=== PATIENT | female | born 1960 | race Caucasian/White ===

== ENCOUNTER 2016-12-07 09:26 | Inpatient (IN) | payer BC, OTHER ==
[~2016-12-07] VITALS: Ht 152.4 cm; Wt 61.4 kg
[2016-12-07 09:33] VITALS: Ht 152.4 cm; Wt 61.4 kg
[2016-12-07] MEDS ORDERED: SOD CHLORIDE 0.9% 1,000 ML IV STA (10:45)
[2016-12-07 11:59] LABS: ABNORMAL IP MESSAGE 1; HEMATOCRIT 21.7 % (37.0-47.0); HEMOGLOBIN 7.3 g/dl (12.0-16.0); MEAN CORPUSCULAR HGB CONC 33.6 g/dl (32.0-37.0); MEAN CORPUSCULAR VOLUME 83.1 fl (82.0-101.0); NUCLEATED RED BLOOD CELLS% 0.2 /100WBC (0.0-0.0); RED BLOOD COUNT 2.61 10^6/ul (4.20-5.40); RED CELL DISTRIBUTION WIDTH 14.3 % (11.5-14.5); WHITE BLOOD COUNT 12.5 10^3/ul (4.8-10.8)
[2016-12-07 12:05] LABS: INR 0.94; PROTIME 12.6 Sec (12.2-14.2)
[2016-12-07 12:06] LABS: PARTIAL THROMBOPLASTIN TIME 30.7 Sec (25.0-35.0)
[2016-12-07 12:12] LABS: ALBUMIN/GLOBULIN RATIO 1.25; BILIRUBIN,INDIRECT 0.4 mg/dl (0-1.1); BILIRUBIN,TOTAL 0.4 mg/dl (0.2-1.3); CALCIUM 8.9 mg/dl (8.4-10.2); CREATININE 0.78 mg/dl (0.44-1.00); POTASSIUM 4.4 mmol/L (3.5-5.1); TOTAL PROTEIN 7.2 g/dl (6.1-8.1)
[2016-12-07 12:16] LABS: PLATELET COUNT 3 10^3/UL (140-415)
[2016-12-07] MEDS ORDERED: SOD CHLORIDE 0.9% 250 ML IV ONE (12:39)
[2016-12-07] MEDS ORDERED: IMMUNE GLOBULIN (HUMAN) 6 GM INJ IV STA (12:39)
[2016-12-07] MEDS ORDERED: METHYLPRED. NA SUCC 500 MG in DEXTROSE 5% 50 ML IVPB ONE ×2 (13:00→14:00)
[2016-12-07] MEDS ORDERED: SOD CHLORIDE 0.9% 1,000 ML IV SCH (13:11)
--- NOTE | 2016-12-07 13:28 | ERD ---
ER Documentation Chief Complaint Chief Complaint SENT BY PCP, WEAKNESS, PALE, HX OF ANEMIA HPI This is a 66-year-old female who presents to the emergency room for evaluation of generalized weakness. The patient was sent in by her primary care physician , Dr. Alatorre for evaluation of possible ITP. This patient states that she has had generalized weakness in his on her menstrual cycle currently. She states that she has had heavy vaginal bleeding and states that she is has used more than 2 pads in the past 24 hours. This patient states that she does have a history of myelodysplastic syndrome in her family, and came to the emergency room today for evaluation of her generalized weakness, and heavy menstrual bleeding. She denies any relieving or aggravating factors for her symptoms. ROS All systems reviewed and are negative except as per history of present illness. Allergies Allergies: Coded Allergies: No Known Allergy (Unverified , 12/07/16) PMhx/Soc Medical and Surgical Hx: pt denies Surgical Hx Hx Miscellaneous Medical Probl: Yes ("blood clotting disease") Hx Alcohol Use: No Hx Substance Use: No Hx Tobacco Use: No Smoking Status: Never smoker Physical Exam Vitals Vital Signs Date Time Temp Pulse Resp B/P Pulse Ox O2 Delivery O2 Flow Rate FiO2 12/07/16 13:27 84 18 125/84 98 Room Air 12/07/16 09:33 98.6 100 16 101/70 99 Physical Exam INITIAL VITAL SIGNS: Reviewed by me GENERAL: The patient is well developed and appropriate for usual state of health in no apparent distress HEENT: Mucous membranes, conjunctival pallor, pupils equal, round, and reactive to light. EOMI. There is no scleral icterus. NECK: C-spine is soft and supple, there is no meningismus. There is no cervical lymphadenopathy. LUNGS: Clear to auscultation bilaterally. There are no rales, wheezes or rhonchi. HEART: Regular rate and rhythm, no murmurs, clicks, rubs or gallops. ABDOMEN: Soft, non-tender, non-distended. There are bowel sounds in all four quadrants. No rebound or guarding. EXTREMITIES: There is no peripheral cyanosis or edema. No focal swelling or erythema. NEUROLOGICAL: The patient moves all four extremities with 5/5 strength. Cranial nerves II - XII are intact. Normal gait. Alert and oriented SKIN: Pale skin with petechiae noted over the torso and abdomen HEME/LYMPHATIC: Petechiae noted over the abdomen and torso PSYCHIATRIC: The patient does not appear anxious or depressed. Result Diagram: 12/07/16 1130 12/07/16 1130 Results 24 hrs Laboratory Tests Test 12/07/16 11:30 White Blood Count 12.510^3/ul Red Blood Count 2.6110^6/ul Hemoglobin 7.3g/dl Hematocrit 21.7% Mean Corpuscular Volume 83.1fl Mean Corpuscular Hemoglobin 28.0pg Mean Corpuscular Hemoglobin Concent 33.6g/dl Red Cell Distribution Width 14.3% Platelet Count 310^3/UL Mean Platelet Volume fl Neutrophils % % Lymphocytes % % Monocytes % % Eosinophils % % Basophils % % Nucleated Red Blood Cells % 0.2/100WBC Neutrophils # 10^3/ul Lymphocytes # 10^3/ul Monocytes # 10^3/ul Eosinophils # 10^3/ul Basophils # 10^3/ul Nucleated Red Blood Cells # 10^3/ul Pathologist Review (Hematology) YES Prothrombin Time 12.6Sec Prothrombin Time Ratio 1.0 INR International Normalized Ratio 0.94 Activated Partial Thromboplast Time 30.7Sec Sodium Level 136mmol/L Potassium Level 4.4mmol/L Chloride Level 97mmol/L Carbon Dioxide Level 32mmol/L Anion Gap 11 Blood Urea Nitrogen 18mg/dl Creatinine 0.78mg/dl Glucose Level 122mg/dl Calcium Level 8.9mg/dl Total Bilirubin 0.4mg/dl Direct Bilirubin 0.00mg/dl Indirect Bilirubin 0.4mg/dl Aspartate Amino Transf (AST/SGOT) 37IU/L Alanine Aminotransferase (ALT/SGPT) 76IU/L Alkaline Phosphatase 216IU/L Total Protein 7.2g/dl Albumin 4.0g/dl Globulin 3.20g/dl Albumin/Globulin Ratio 1.25 Lipase 25U/L Current Medications Medications (Trade) Dose Ordered Sig/Shelbi Route PRN Reason Start Time Stop Time Status Last Admin Dose Admin Sodium Chloride 1,000 ml @ 1,000 mls/hr Q1H STAT IV 12/07/16 10:45 12/07/16 11:44 DC 12/07/16 11:44 Methylprednisolone Sodium Succinate 500 mg/Dextrose 50 ml @ 100 mls/hr ONCE ONCE IVPB 12/07/16 13:00 12/07/16 13:00 DC Sodium Chloride (NS) 250 ml @ 0 mls/hr Q0M ONCE IV 12/07/16 12:39 12/07/16 12:44 DC Immune Globulin 24 gm 24 gm ONCE STAT IV 12/07/16 12:39 12/07/16 12:40 Cancel Immune Globulin 24 gm/Sterile Water 500 ml @ 0 mls/hr ONCE IV 12/07/16 14:00 12/07/16 23:59 Sodium Chloride (NS) 1,000 ml @ 80 mls/hr [id number] IV 12/07/16 13:11 12/08/16 01:40 Ondansetron HCl (Zofran Inj) 4 mg ER BRIDGE PRN IV NAUSEA AND/OR VOMITING 12/07/16 13:30 12/08/16 13:29 Acetaminophen (Tylenol Tab) 650 mg ER BRIDGE PRN PO MILD PAIN/FEVER 12/07/16 13:30 12/08/16 13:29 Procedures/MDM Ultrasound abdomen: No free fluid This is a 56-year-old female who presents to the emergency room after being sent in by her primary care physician, Dr. alatorre for evaluation of generalized weakness, possible anemia and ITP. This patient does have a history of mild dysplastic syndrome which runs in her family and the patient states that her mother did of complications secondary to myelodysplastic syndrome. She has not had a workup for a mild dysplasia in the past. When I evaluated her I noted a female that was in no acute distress however she did have pale skin, petechiae, and conjunctival pallor. Lab work was obtained and lab work does show a normocytic anemia likely secondary to acute blood loss from heavy menstrual bleeding. The patient also has a platelet count of 3000. Given that this patient has petechiae, could be suffering from ITP and has active bleeding with a platelet count less than 10,000 the patient was transfused 1 unit of platelets in the emergency room, she was given 1 unit of packed red blood cells as well. I did start this patient on IVIG, and has spoken to Dr. Alatorre who referred me to shear setter/oncologist Dr. Langley. I have reviewed the case with him and he is okay with her plan of care for high-dose Solu-Medrol, 500 mg. He is okay with IVIG and platelet and blood transfusions here in the emergency room. I spoken to this patient in regards to her diagnosis and the patient is okay with her plan of care. She will be admitted under the care of Dr. Alatorre for will be placed to telemetry floor at this time. Critical Care: Excluding all billable procedures Time: 47 minutes Treatments/Evaluations: Close monitoring and treatment of unstable vital signs, cardiorespiratory, and neurologic status, while maintaining tight balance of fluid, respiratory, and cardiac interventions, multiple consultations , lab value interpretation, blood transfusion, platelet transfusion, coordination of nursing care. Departure Diagnosis: Primary Impression: Thrombocytopenia Additional Impressions: Blood loss anemia Acute ITP Menorrhagia Condition: Fair MITZI GARCIA DO Dec 07, 2016 13:28
[2016-12-07] MEDS ORDERED: ACETAMINOPHEN 325 MG TAB PO PRN (13:30)
[2016-12-07] MEDS ORDERED: ONDANSETRON 4 MG INJ IV PRN (13:30)
--- NOTE | 2016-12-07 13:54 | HP ---
DATE OF ADMISSION: 12/07/2016 IDENTIFYING DATA: The patient is a 56-year-old female admitted with chief complaint of weakness and bruising of approximately 6 weeks' duration. HISTORICAL EVENTS: Importantly, the patient did have evidence of an upper respiratory tract infecti on in late September of this year and was given a Z-Tee. She was seen today with the chief complaint o f being quite tired for approximately 6 to 8 weeks, noting some soreness involving the left upper qu adrant and lateral ribs when bending and twisting, not so taking a deep breath. There has been no r ecurrence of cough, wheezing, shortness of breath, or substernal chest pain. For the last week or s o, she has noted some "red dots" on her skin seems to be bruising more so her extremities, less so h er torso, even prior to taking nonsteroidals and Suman's pills. Her appetite has been reduced. Ther e has been some nausea, no vomiting. There has been no gross gastrointestinal bleeding. She did st art her period yesterday and has noted significant bleeding, more so than usual. She denied any pat hologic symptoms. She has had some low back pain several days ago. She has had no trauma, fever , chills or weight loss. MEDICATIONS: Synthroid 100 mcg per day. PAST MEDICAL HISTORY: Includes: 1. History of digits gestational diabetes with first . 2. History of genital and lip herpes. 3. History of benign positional vertigo. This occurred in 2009 with MRI imaging of the brain and I AC being negative. 4. Thyroid nodules that were evaluated by endocrine in 2011, was reevaluated in spring 2016, no int ervention was needed. 5. Evaluated rheumatologically by Dr. Foster in 02/2012. It was felt no rheumatologic disease was present. ALLERGIES: NONE. FAMILY HISTORY: Positive for skin cancer and mom had a "blood disorder". SOCIAL HISTORY: She is from [place], , has 2 boys. 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 One son has ce rebral palsy. PHYSICAL EXAMINATION: GENERAL: Pale female in no acute distress. VITAL SIGNS: BP 115/78 sitting, 104/76 standing, respirations were 18. She was afebrile. EYES: Extraocular muscles were full. Conjunctivae were pale. Nose, mouth and throat were normal. NECK: Supple without jugular venous distention, thyroid enlargement or adenopathy. LUNGS: Clear. HEART: Rhythm regular, I/ systolic murmur. No third or fourth sound. ABDOMEN: Obese. Liver was not enlarged. There was slight tenderness in the left upper quadrant an d left lateral ribs on gentle palpation. There was a fullness in the left upper quadrant. Spleen t ip could not be palpable. EXTREMITIES: No edema. SKIN: Revealed petechiae and ecchymoses involving the extremities, more so than torso. IMPRESSION: 1. Suspect she has anemia, which may be related to bleeding, gastrointestinal? Differential diagno sis includes a possible hemolytic anemia or ITP. 2. Left upper quadrant and left lateral rib pain. This may be related to splenomegaly, doubt splen ic rupture. PLAN: Emergency room evaluation. We will need CT of the chest and abdomen. Hematology to see. Jenn it labs. Dictated By: ALFREDO BRAMBILA/DONALD Conf#: [id number] DID#: [id number]
[2016-12-07] MEDS ORDERED: LIOT25TA3 PO (13:56)
[2016-12-07] MEDS ORDERED: LEVO25TA53 PO (13:56)
[2016-12-07] MEDS ORDERED: WATER STERILE FOR IV SCH (14:00)
[2016-12-07] MEDS ORDERED: IMMUNE GLOBULIN IV SCH (14:00)
--- NOTE | 2016-12-07 15:25 | RADRPT ---
PROCEDURE: US Abdomen - limited study.. CLINICAL INDICATION: Palpable spleen. TECHNIQUE: Multiple real-time longitudinal and transverse images of the upper portion of the abdom en were acquired utilizing a curved array transducer. Images were reviewed on a high-resolution PACS workstation. COMPARISON: None FINDINGS: The liver is normal in size and normal in echogenicity. There is no focal hepatic lesion. The spleen is normal in size and there is no focal splenic lesion. The spleen measures 10.5 x 5.7 x 5.3 cm. The pancreas is not visualized due to overlying bowel gas. No free fluid is present. The kidneys are grossly normal. IMPRESSION: 1. Normal spleen with no splenomegaly. 2. Otherwise unremarkable limited upper abdomen ultrasound. RPTAT: QQ .Siva Marino MD, Date Time Electronically viewed and signed by .Siva Marino MD, on 12/07/2016 15:25 .R/
--- NOTE | 2016-12-07 15:44 | RADRPT ---
PROCEDURE: CT Abdomen and Pelvis without contrast. CLINICAL INDICATION: Abdominal and pelvic pain. TECHNIQUE: CT scan of the abdomen and pelvis without contrast was performed. Coronal and sagittal reformatted images were obtained from the axial source images. Images were reviewed on a high-resolu [place] PACS workstation. Total exam DLP is 503.15 mGy-cm. CTDIvol is 8.58 mGy. One or more of the fo [facility] dose reduction techniques were used: Automated exposure control, adjustment of the mA and/or kV according to patient size, use of iterative reconstruction technique. COMPARISON: None. FINDINGS: The lung bases are normal. There is no pleural effusion. The liver is normal in size and attenuation. There is no focal hepatic lesion. The gallbladder and bile ducts are normal. The spleen is normal in size. There is no focal splenic lesion. Both adrenals are normal with no enlargement or mass. The pancreas is unremarkable with no mass or evidence of pancreatitis. There is no renal mass or hydronephrosis. There is no renal calculus or ureteral calculus. The abdominal aorta is not dilated. There is no retroperitoneal lymphadenopathy or mass. There is no pelvic lymphadenopathy or mass. The bladder and distal ureters are normal. The periappendiceal region is unremarkable with no evidence of appendicitis. The appendix is well se en and appears normal. The bowel and mesentery are normal. There is no free fluid or free gas. The osseous structures are unremarkable with no fracture or lytic lesion. IMPRESSION: 1. Unremarkable CT scan of the abdomen and pelvis. RPTAT: QQ .Siva Marino MD, Date Time Electronically viewed and signed by .Siva Marino MD, MD on 12/07/2016 15:44 .R/
[2016-12-07 18:40] VITALS: TEMP 98.5
[2016-12-07 20:00] VITALS: BP 123/72; PULSE 87; RESP 20
[2016-12-07 20:42] LABS: IRON 131 ug/dl (35-150)
[2016-12-07 20:52] LABS: TOTAL IRON BINDING CAPACITY 295 ug/dl (241-421)
[2016-12-07 20:59] LABS: URIC ACID 3.4 mg/dl (3.1-7.9)
[2016-12-07 22:02] LABS: FOLATE > 20.0 ng/ml (2.8-20.0)
[2016-12-08] VITALS (12 sets, daily range): BP systolic 100–123; BP diastolic 55–71; PULSE 55–84; RESP 18–20
[2016-12-08 06:32] LABS: ABNORMAL IP MESSAGE 1; HEMATOCRIT 22.4 % (37.0-47.0); HEMOGLOBIN 7.7 g/dl (12.0-16.0); MEAN CORPUSCULAR HEMOGLOBIN 28.4 pg (29.0-33.0); MEAN CORPUSCULAR HGB CONC 34.4 g/dl (32.0-37.0); MEAN CORPUSCULAR VOLUME 82.7 fl (82.0-101.0); MEAN PLATELET VOLUME 10.8 fl (7.4-10.4); NUCLEATED RED BLOOD CELLS% 0.3 /100WBC (0.0-0.0); PLATELET COUNT 39 10^3/UL (140-415); RED BLOOD COUNT 2.71 10^6/ul (4.20-5.40); RED CELL DISTRIBUTION WIDTH 13.9 % (11.5-14.5); WHITE BLOOD COUNT 11.2 10^3/ul (4.8-10.8)
[2016-12-08 06:45] LABS: POSITIVE DIFF @See below
[2016-12-08] MEDS ORDERED: LEVOTHYROXINE 25 MCG TAB PO SCH (07:00)
[2016-12-08 07:09] LABS: MAGNESIUM 1.9 mg/dl (1.7-2.5); PHOSPHORUS 3.8 mg/dl (2.5-4.9)
[2016-12-08 07:13] LABS: ALBUMIN/GLOBULIN RATIO 0.78; BILIRUBIN,INDIRECT 0.2 mg/dl (0-1.1); BILIRUBIN,TOTAL 0.2 mg/dl (0.2-1.3); CALCIUM 8.8 mg/dl (8.4-10.2); CREATININE 0.68 mg/dl (0.44-1.00); POTASSIUM 4.9 mmol/L (3.5-5.1); TOTAL PROTEIN 6.8 g/dl (6.1-8.1)
[2016-12-08 07:43] LABS: THYROID STIMULATING HORMONE 1.26 MIU/L (0.465-4.680)
--- NOTE | 2016-12-08 08:03 | PN ---
Date/Time of Note Date/Time of Note DATE: 12/08/16 TIME: 07:59 Assessment/Plan VTE Prophylaxis VTE Prophylaxis Intervention: contraindicated Lines/Catheters IV Catheter Type (from Nrsg): Peripheral IV Assessment/Plan Assessment/Plan 1. Thrombocytopenia likely ITP, will rev with heme, ? transfuse although she is not symptomatic, ? cont steroids, bone marrow to be done today. 2. Left upper quad pain has resolved, no enlarged spleen noted on CT. 3. Hypothryoidism, will confirm exact thyroid replacement. 4. Anemia, not iron defecient, vag bleeding has abated, stool ob is pending. 5. Mild abnl liver tests, ? cause, will follow and obtain hepatitis panel. Subjective 24 Hr Interval Summary Respiratory: No cough, No shortness of breath Cardiovascular: No chest pain Gastrointestinal: No nausea, No pain, No vomiting Genitourinary: no complaints Musculoskeletal: No back pain Exam/Review of Systems Vital Signs Vitals Vital Signs Date Time Temp Pulse Resp B/P Pulse Ox O2 Delivery O2 Flow Rate FiO2 12/08/16 07:48 98.3 73 20 109/71 98 12/07/16 18:40 Room Air Intake and Output 12/07/16 12/07/16 12/08/16 15:00 23:00 07:00 Intake Total 350 ml 2040 ml Balance 350 ml 2040 ml Exam Neck: No jvd Respiratory: clear to auscultation Cardiovascular: regular rate and rhythm Gastrointestinal: nl liver, spleen, soft, No distended, No mass Extremities: No edema, No tenderness Results Result Diagram: 12/08/16 0532 12/08/16 0532 Results 24 hrs Laboratory Tests Test 12/07/16 11:30 12/07/16 20:03 12/07/16 20:09 12/08/16 05:32 White Blood Count 12.5 H 11.2 H Red Blood Count 2.61 L 2.71 L Hemoglobin 7.3 L 7.7 L Hematocrit 21.7 L 22.4 L Mean Corpuscular Volume 83.1 82.7 Mean Corpuscular Hemoglobin 28.0 L 28.4 L Mean Corpuscular Hemoglobin Concent 33.6 34.4 Red Cell Distribution Width 14.3 13.9 Platelet Count 3 *L 39 #L Mean Platelet Volume 10.8 H Neutrophils % Lymphocytes % Monocytes % Eosinophils % Basophils % Nucleated Red Blood Cells % 0.2 H 0.3 H Neutrophils # Lymphocytes # Monocytes # Eosinophils # Basophils # Nucleated Red Blood Cells # Pathologist Review (Hematology) YES Prothrombin Time 12.6 Prothrombin Time Ratio 1.0 INR International Normalized Ratio 0.94 Activated Partial Thromboplast Time 30.7 Sodium Level 136 138 Potassium Level 4.4 4.9 Chloride Level 97 104 Carbon Dioxide Level 32 H 30 Anion Gap 11 9 Blood Urea Nitrogen 18 14 Creatinine 0.78 0.68 Glucose Level 122 206 Calcium Level 8.9 8.8 Total Bilirubin 0.4 0.2 Direct Bilirubin 0.00 0.00 Indirect Bilirubin 0.4 0.2 Aspartate Amino Transf (AST/SGOT) 37 39 Alanine Aminotransferase (ALT/SGPT) 76 H 74 H Alkaline Phosphatase 216 H 168 H Total Protein 7.2 6.8 Albumin 4.0 3.0 #L Globulin 3.20 3.80 H Albumin/Globulin Ratio 1.25 0.78 Lipase 25 Iron Level 131 Total Iron Binding Capacity 295 Percent Iron Saturation 44 Ferritin 213.0 Vitamin B12 Level > 1000 H Folate > 20.0 H Fibrinogen 424.0 Uric Acid 3.4 Lactate Dehydrogenase 1335 H Immunoglobulin A 140 Immunoglobulin G 891 Immunoglobulin M 36 L Phosphorus Level 3.8 Magnesium Level 1.9 Thyroid Stimulating Hormone (TSH) 1.260 Test 12/08/16 06:30 Lab Scanned Report BLOOD TRANSFUSION ALFREDO BUSCH MD Dec 08, 2016 08:03
--- NOTE | 2016-12-08 08:36 | CONS ---
DATE OF ADMISSION: 12/07/2016 DATE OF CONSULTATION: 12/07/2016 HEMATOLOGY CONSULTATION REQUESTING PHYSICIAN: Dr. Ja Morejon. REASON FOR CONSULTATION: Thrombocytopenia. Dear Dr. Morejon: Thank you very much for asking me to see this very interesting and pleasant patient in hematologic consultation. As you know, Ms. Evangelista is a 56-year -old premenopausal female who is admitted to [facility] with complaints of increasing weakness and fatigue as well as increasing bruising. The patient apparently was seen for a routine physical examination on 2016. At that time, the patient was experiencing some mild fatigue and also recently was experiencing some upper respiratory tract symptoms. At that time, however, the patient did have a CBC performed. The white count was 8000 with 63 % neutrophils and 23% lymphocytes. Hemoglobin was 12.2, hematocrit was 12.2, MCV 85.3, MCH 28.4, MCHC 33.3, and platelet count was 303,000. Also at that time, a comprehensive metabolic panel was drawn. This was basically within normal limits. At that time, the patient had a calcium of 9.2 and albumin was 4.2, glucose 92, BUN 14, creatinine 0.81. Alkaline phosphatase 71, ALT 10, AST 17, bilirubin 0.5. PAST MEDICAL HISTORY: The patient, as mentioned, is admitted now after presenting to Dr. Morejon's office with complaints of increasing fatigue. She has also noticed increased bruisability in the past 1 to 2 weeks. The patient did have the onset of her usual menses over the weekend, which did result in heavy flow with increasing symptoms of fatigue and feeling "lightheaded." The patient has had some epistaxis, but has not had any gingival bleeding. She has not noticed any melena or hematochezia. The patient has complained of some lower back and some left upper quadrant discomfort, but has not had any significant bone pain. She has not had fevers, chills or night sweats. She has not complained of headache, dizziness or diplopia. The patient on admission to the hospital has a white count of 12,500, the red blood cell count is 2.61 million, hemoglobin 7.3, hematocrit 21.7, MCV 83, MCH 28.0, MCHC 33.6, and platelet count is 3000. Pro time was 12.6 seconds with an INR of 0.94, PTT is 30.7 seconds. A comprehensive metabolic panel was normal, except for an ALT of 76 and alkaline phosphatase of 216. Total bilirubin was 0.4, AST 37. A chest x-ray has not been performed, but a CT scan of the abdomen and pelvis was normal. There was no mesenteric or retroperitoneal lymphadenopathy. The liver, gallbladder, pancreas, kidneys, adrenal gland and spleen were normal. The bony structures visualized did not show any evidence of destructive lesions or fractures. Abdominal ultrasound was also done and the spleen was measured at 10.5 x 5.7 x 5.3 cm. This is not enlarged. The patient's past history is remarkable in that she has had minimal medical problems. She has had a history of hypothyroidism. Has been seen in the past by a pier master assistant, but apparently no rheumatologic abnormality was found. The patient has no history of hypertension, heart disease, diabetes, renal, hepatic or pulmonary disease. MEDICATIONS: Prior to admission included levothyroxine 100 mcg daily. The patient had recently had an upper respiratory tract infection and was treated with azithromycin over a 4 day period. She cannot tell me exactly when this was discontinued. The patient is premenopausal. Last menstrual period was within the last week. She is 4, para 2, AB 2. SOCIAL HISTORY: The patient is . 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 She has no known exposures to industrial toxins or ionizing radiation. She does not smoke cigarettes but does have approximately 1 glass of wine per day. FAMILY HISTORY: The patient's family history is remarkable in that her mother apparently had a myelodysplastic syndrome. She in her 70s. There is also apparently a cousin who has had acute leukemia. She also has 1 child who has cerebral palsy. PHYSICAL EXAMINATION GENERAL: Reveals a well-developed, mildly obese female who is in no acute distress. VITAL SIGNS: Temperature 98.5 orally, pulse 92 per minute and regular, respirations 16, blood pressure 114/73, pulse oximetry 98% on room air. SKIN: There are scattered ecchymoses and petechiae. Skin is pale. Good skin turgor. HEENT: Normocephalic. No evidence of trauma. The pupils are equal, round, reactive to light and accommodation. Sclerae are nonicteric. Oral mucosa and conjunctivae are pale. There are no subconjunctival hemorrhages. No retinal hemorrhages, no oral mucosal purpura. NECK: Supple, no jugular venous distention or thyroid enlargement. No carotid bruits. CHEST: Clear to auscultation and percussion. No rhonchi, wheezes, rales or rubs. HEART: Regular sinus rhythm. No S3, S4 or murmurs. NODES: No palpable lymphadenopathy in any lymph node bearing area. ABDOMEN: Soft, mild obesity. There are no palpable masses, no organomegaly. There is mild tenderness on palpation of the left upper quadrant. No rebound tenderness. Bowel sounds are active. There is no ascites. EXTREMITIES: Good range of motion. No clubbing, no edema or cyanosis. No palpable cords or Homans sign. There are multiple ecchymoses on the lower extremities. NEUROLOGIC: Reveals no focal neurologic abnormalities. The peripheral smear has been reviewed. There is increased rouleaux formation. There is mild a population of hypochromic and microcytic red blood cells. No red blood cell fragmentation noted. White blood cells are minimally increased in number. There is, however, a left shift with some circulating myelocytes and what appear to be blasts. There are also nucleated red blood cells seen. The lymphocytes appear normal. Platelets are markedly decreased and mostly small forms. This patient does have severe thrombocytopenia and anemia, which has evolved in the past 2 months. The patient has not had any recent exposures to toxins or infections, although apparently did have an upper respiratory tract infection recently and did take azithromycin. Although there is a consideration of immune thrombocytopenia, the presence of the nucleated red blood cells and immature granulocytes including blasts suggest the possibility of an evolving acute leukemia. I have discussed the situation with the patient. She has already received 1 unit of packed red blood cells and 1 unit of platelets. She has also been given Solu-Medrol 500 mg as a treatment for potential immune thrombocytopenia. Also is scheduled to receive IVIG as a treatment for immune thrombocytopenia. As mentioned, I do feel that this patient has a possible evolving acute leukemia. I have therefore requested that a posterior iliac crest bone marrow aspiration and biopsy be performed in radiology tomorrow. Other studies at this time include an LDH as well as a uric acid. We will obtain a serum protein electrophoresis, immunofixation, and quantitative immunoglobulins. Also obtain DOYLE as well as antiplatelet antibodies. Iron studies have been ordered. We will also obtain a JAK2 mutation analysis and BCR-ABL gene rearrangement studies for the possibility that the patient may have a [place] chromosome positive acute lymphoblastic leukemia, although I feel this is unlikely. Once again, thank you very much for the opportunity of participating in the medical care of this very interesting and pleasant patient. I will be happy to follow this patient with you and assist in her hematologic evaluation and follow up as necessary. Dictated By: LICO LARSEN MD SR/DONALD Conf#: [id number] DID#: [id number]
[2016-12-08] MEDS: LIOTHYRONINE 25 MCG TAB PO SCH (09:00)
[2016-12-08 09:24] LABS: ADD UMIC YES; UR ASCORBIC ACID 20 mg/dL (NEGATIVE); UR BILIRUBIN (Dip) NEGATIVE (NEGATIVE); UR BLOOD (Dip) 2+ mg/dL (NEGATIVE); UR CLARITY CLEAR (CLEAR); UR COLOR STRAW (YELLOW); UR GLUCOSE (Dip) 3+ mg/dL (NEGATIVE); UR KETONES (Dip) NEGATIVE (NEGATIVE); UR LEUKOCYTE ESTERASE (Dip) NEGATIVE Leu/ul (NEGATIVE); UR NITRITE (Dip) NEGATIVE (NEGATIVE); UR RBC 26 /HPF (0-5); UR SPECIFIC GRAVITY (Dip) 1.013 (1.003-1.030); UR SQUAMOUS EPITHELIAL CELL FEW /HPF (FEW); UR TOTAL PROTEIN (Dip) NEGATIVE (NEGATIVE); UR UROBILINOGEN (Dip) NEGATIVE (NEGATIVE)
[2016-12-08 09:28] LABS: BLASTOCYTES #M 1.1 10^3/ul (0.0-0.0)
[2016-12-08 09:37] LABS: PATH REVIEW WS; POSITIVE DIFF @See below
[2016-12-08 09:44] LABS: PATH REVIEW? YES
[2016-12-08 10:14] LABS: ANISOCYTOSIS 2+ (0-0); EOSINOPHILS % (M) 2 % (0-7); MICROCYTOSIS 2+ (0-0); MONOCYTES % (M) 3 % (0-11); PLATELET ESTIMATE DECREASED; POIKILOCYTOSIS 1+ (0-0); POLYCHROMASIA 3+ (0-0); REACTIVE LYMPHOCYTES% (M) 6 % (0-0)
--- NOTE | 2016-12-08 11:04 | PN ---
Date/Time of Note Date/Time of Note DATE: 12/08/16 TIME: 10:57 Assessment/Plan VTE Prophylaxis VTE Prophylaxis Intervention: other (thrombocytopenia) Lines/Catheters IV [facility] Peripheral IV Assessment/Plan Assessment/Plan 56 yo woman originally thought to have ITP but blasts seen on the peripheral smear, which raises the possibility of leukemia. WBC is minimally elevated but plt were 3 (now 39 after IVIG, steroids and transfusion) and Hgb is up to 7.7 after transfusion. I will order one more unit of RBC. Bone marrow biopsy is to be done later today but the exact time is not known. A preliminary marrow result may be available late tomorrow morning. Subjective 24 Hr Interval Summary Free Text/Dictation Pt feels much better after transfusions. She is very anxious to go home. Exam/Review of Systems Vital Signs Vitals Vital Signs Date Time Temp Pulse Resp B/P Pulse Ox O2 Delivery O2 Flow Rate FiO2 12/08/16 08:12 73 12/08/16 07:48 98.3 20 109/71 98 12/07/16 18:40 Room Air Intake and Output 12/07/16 12/07/16 12/08/16 15:00 23:00 07:00 Intake Total 350 ml 2040 ml Balance 350 ml 2040 ml Exam Constitutional: alert, oriented Head: normocephalic Eyes: other (pallor) Neck: supple Respiratory: clear to auscultation Cardiovascular: regular rate and rhythm Gastrointestinal: nl liver, spleen, soft Skin: ecchymosis Lymph: nl lymph nodes Results Result Diagram: 12/08/16 0532 12/08/16 0532 Results 24 hrs Laboratory Tests Test 12/07/16 11:30 12/07/16 20:03 12/07/16 20:09 12/08/16 01:00 White Blood Count 12.5 H Red Blood Count 2.61 L Hemoglobin 7.3 L Hematocrit 21.7 L Mean Corpuscular Volume 83.1 Mean Corpuscular Hemoglobin 28.0 L Mean Corpuscular Hemoglobin Concent 33.6 Red Cell Distribution Width 14.3 Platelet Count 3 *L Mean Platelet Volume Neutrophils % Lymphocytes % Monocytes % Eosinophils % Basophils % Nucleated Red Blood Cells % 0.2 H Neutrophils # Neutrophils # (Manual) Absolute Lymphocytes (Manual) Lymphocytes # Monocytes # Absolute Monocytes (Manual) Eosinophils # Absolute Eosinophils (Manual) Basophils # Blastocytes # 1.1 H Nucleated Red Blood Cells # Pathologist Review (Hematology) WS Prothrombin Time 12.6 Prothrombin Time Ratio 1.0 INR International Normalized Ratio 0.94 Activated Partial Thromboplast Time 30.7 Sodium Level 136 Potassium Level 4.4 Chloride Level 97 Carbon Dioxide Level 32 H Anion Gap 11 Blood Urea Nitrogen 18 Creatinine 0.78 Glucose Level 122 Calcium Level 8.9 Total Bilirubin 0.4 Direct Bilirubin 0.00 Indirect Bilirubin 0.4 Aspartate Amino Transf (AST/SGOT) 37 Alanine Aminotransferase (ALT/SGPT) 76 H Alkaline Phosphatase 216 H Total Protein 7.2 Albumin 4.0 Globulin 3.20 Albumin/Globulin Ratio 1.25 Lipase 25 Iron Level 131 Total Iron Binding Capacity 295 Percent Iron Saturation 44 Ferritin 213.0 Vitamin B12 Level > 1000 H Folate > 20.0 H Fibrinogen 424.0 Uric Acid 3.4 Lactate Dehydrogenase 1335 H Immunoglobulin A 140 Immunoglobulin G 891 Immunoglobulin M 36 L Urine Color STRAW Urine Clarity CLEAR Urine pH 6.0 Urine Specific [place] 1.013 Urine Ketones NEGATIVE Urine Nitrite NEGATIVE Urine Bilirubin NEGATIVE Urine Urobilinogen NEGATIVE Urine Leukocyte Esterase NEGATIVE Urine Microscopic RBC 26 H Urine Microscopic WBC 1 Urine Squamous Epithelial Cells FEW Urine Hemoglobin 2+ H Urine Glucose 3+ H Urine Total Protein NEGATIVE Test 12/08/16 05:32 12/08/16 06:30 White Blood Count 11.2 H Red Blood Count 2.71 L Hemoglobin 7.7 L Hematocrit 22.4 L Mean Corpuscular Volume 82.7 Mean Corpuscular Hemoglobin 28.4 L Mean Corpuscular Hemoglobin Concent 34.4 Red Cell Distribution Width 13.9 Platelet Count 39 #L Mean Platelet Volume 10.8 H Neutrophils % Segmented Neutrophils % (Manual) 42 Band Neutrophils % (Manual) 6 H Lymphocytes % Lymphocytes % (Manual) 41 Reactive Lymphocytes % (Manual) 6 H Monocytes % Monocytes % (Manual) 3 Eosinophils % Eosinophils % (Manual) 2 Basophils % Nucleated Red Blood Cells % 0.3 H Neutrophils # Neutrophils # (Manual) 4.8 Band Neutrophils # 0.6 Absolute Lymphocytes (Manual) 4.5 H Lymphocytes # Reactive Lymphocytes # 0.6 H Monocytes # Absolute Monocytes (Manual) 0.3 Eosinophils # Basophils # Nucleated Red Blood Cells # Platelet Estimate DECREASED Polychromasia 3+ Poikilocytosis 1+ Anisocytosis 2+ Microcytosis 2+ Sodium Level 138 Potassium Level 4.9 Chloride Level 104 Carbon Dioxide Level 30 Anion Gap 9 Blood Urea Nitrogen 14 Creatinine 0.68 Glucose Level 206 Calcium Level 8.8 Phosphorus Level 3.8 Magnesium Level 1.9 Total Bilirubin 0.2 Direct Bilirubin 0.00 Indirect Bilirubin 0.2 Aspartate Amino Transf (AST/SGOT) 39 Alanine Aminotransferase (ALT/SGPT) 74 H Alkaline Phosphatase 168 H Total Protein 6.8 Albumin 3.0 #L Globulin 3.80 H Albumin/Globulin Ratio 0.78 Thyroid Stimulating Hormone (TSH) 1.260 Lab Scanned Report BLOOD TRANSFUSION Medications Medications Current Medications Liothyronine Sodium (Cytomel) 25 mcg DAILY PO ; Start 12/08/16 at 09:00 ALFREDO GUEVARA MD Dec 08, 2016 11:04
[2016-12-08] MEDS ORDERED: FENTAnyl 50 MCG/ML VIAL ONE (15:21)
[2016-12-08] MEDS ORDERED: DIPHENHYDRAMINE 50 MG INJ ONE (15:21)
[2016-12-08] MEDS ORDERED: LIDOCAINE 1% (MDV) 20 ML INJ ONE (15:21)
--- NOTE | 2016-12-08 16:17 | RADRPT ---
PROCEDURE: CT guided bone marrow aspiration and left iliac bone biopsy. CLINICAL INDICATION: History of pancytopenia. TECHNIQUE: Informed consent was obtained. The procedure, risks, benefits, complications and alternatives were e xplained to the patient. Risks including bleeding and infection were explained. The patient understo od and was willing to proceed. A procedural pause was performed. The patient's name, date of , and procedure to be performed were verified. One or more of the following dose reduction techni ques were used: Automated exposure control, adjustment of the mA and/or kV according to patient size , use of iterative reconstruction technique. Using local anesthetic, sterile technique and CT guidance, an 11-gauge On Control bone biopsy needle was advanced into the left iliac bone via a posterior approach. Bone marrow aspiration was perform ed yielding approximately 10 ml. The bone biopsy needle was then advanced an additional 4 cm using the power drill device and tissue was obtained. Adequate tissue was obtained according to the patho logist present during the procedure. The needle was removed. A postprocedural scan was performed. A dressing was applied. The patient tolerated procedure well. COMPARISON: None. FINDINGS: Initial images demonstrate the tip of the needle at the posterior margin of the left iliac bone. [place] bsequent images demonstrate the needle within the bone. Post biopsy images demonstrate no immediate complication. IMPRESSION: 1. Successful CT guided bone marrow aspiration and biopsy. RPTAT: QQ .Siva Marino MD, Date Time Electronically viewed and signed by .Siva Marino MD, MD on 12/08/2016 16:17 .R/
[2016-12-09] VITALS (11 sets, daily range): BP systolic 106–128; BP diastolic 64–76; PULSE 57–71; RESP 18–20
[2016-12-09 03:47] LABS: PROTEIN, TOTAL 6.2 g/dL (6.1-8.1)
[2016-12-09] MEDS: LIOTHYRONINE 25 MCG TAB PO SCH (08:07)
--- NOTE | 2016-12-09 08:15 | PN ---
Date/Time of Note Date/Time of Note DATE: 12/09/16 TIME: 08:12 Assessment/Plan VTE Prophylaxis VTE Prophylaxis Intervention: other Lines/Catheters IV Catheter Type (from Nrs): Peripheral IV Assessment/Plan Assessment/Plan 1. Rev with heme yesterday, profound anemia is more consistent with leukemia ( without elev peripheral wbc ct), await rev of bone marrow, labs are pending. 2. Hypothyroid on replacement Subjective 24 Hr Interval Summary Respiratory: No cough, No shortness of breath Cardiovascular: No chest pain Gastrointestinal: no complaints Genitourinary: no complaints Skin: other (no increased bruising) Additional Comments vaginal bleeding has abated Exam/Review of Systems Vital Signs Vitals Vital Signs Date Time Temp Pulse Resp B/P Pulse Ox O2 Delivery O2 Flow Rate FiO2 12/09/16 07:33 98.1 64 20 114/72 99 12/07/16 18:40 Room Air Intake and Output 12/08/16 12/08/16 12/09/16 15:00 23:00 07:00 Intake Total 790 ml Balance 790 ml Exam Neck: No jvd Respiratory: clear to auscultation Cardiovascular: regular rate and rhythm Gastrointestinal: soft Extremities: No edema (and no calf tend) Results Result Diagram: 12/08/16 0532 12/08/16 0532 Results 24 hrs Laboratory Tests Test 12/09/16 05:22 Lab Scanned Report BLOOD TRANSFUSION Medications Medications Current Medications Liothyronine Sodium (Cytomel) 25 mcg DAILY PO Last administered on 12/09/16t 08:07; Admin Dose 25 MCG; Start 12/08/16 at 09:00 ALFREDO BUSCH MD Dec 09, 2016 08:15
--- NOTE | 2016-12-09 08:26 | RADRPT ---
PROCEDURE: XR Chest. CLINICAL INDICATION: Thrombocytopenia. TECHNIQUE: Two views. Frontal and lateral. COMPARISON: No prior study is available for comparison. FINDINGS: The lungs are clear. The heart size is normal. There is no pleural effusion. There is no pneumothorax. IMPRESSION: 1. Normal chest radiograph. RPTAT: QQ .Siva Marino MD, MD Date Time Electronically viewed and signed by .Siva Marino MD, on 12/09/2016 08:26 .R/
[2016-12-09] MEDS ORDERED: ACETAMINOPHEN 500 MG TAB PO PRN (08:30)
[2016-12-09] MEDS ORDERED: ZOLPIDEM 5 MG TAB PO PRN (08:30)
[2016-12-09 08:50] LABS: ABNORMAL IP MESSAGE 1; HEMATOCRIT 26.4 % (37.0-47.0); HEMOGLOBIN 8.8 g/dl (12.0-16.0); MEAN CORPUSCULAR HGB CONC 33.3 g/dl (32.0-37.0); MEAN CORPUSCULAR VOLUME 84.1 fl (82.0-101.0); MEAN PLATELET VOLUME 10.7 fl (7.4-10.4); RED BLOOD COUNT 3.14 10^6/ul (4.20-5.40); RED CELL DISTRIBUTION WIDTH 14.4 % (11.5-14.5); WHITE BLOOD COUNT 6.8 10^3/ul (4.8-10.8)
[2016-12-09 08:55] LABS: PLATELET COUNT 19 10^3/UL (140-415); POSITIVE DIFF @See below
[2016-12-09] MEDS ORDERED: ACETAMINOPHEN 325 MG TAB PO SCH (09:00)
[2016-12-09] MEDS ORDERED: DIPHENHYDRAMINE 25 MG CAP PO SCH (09:00)
[2016-12-09 09:05] LABS: ALBUMIN 3.1 g/dl (3.3-4.9); ALBUMIN/GLOBULIN RATIO 0.88; BILIRUBIN,INDIRECT 0.5 mg/dl (0-1.1); BILIRUBIN,TOTAL 0.5 mg/dl (0.2-1.3); CALCIUM 8.8 mg/dl (8.4-10.2); CREATININE 0.85 mg/dl (0.44-1.00); POTASSIUM 4.5 mmol/L (3.5-5.1); TOTAL PROTEIN 6.6 g/dl (6.1-8.1)
[2016-12-09 10:08] LABS: ANISOCYTOSIS 1+ (0-0); MICROCYTOSIS 1+ (0-0); MONOCYTES % (M) 4 % (0-11); MYELOCYTES % (M) 2 % (0-0); PLATELET ESTIMATE SIG DECREASED; POLYCHROMASIA 1+ (0-0); REACTIVE LYMPHOCYTES% (M) 3 % (0-0)
--- NOTE | 2016-12-09 10:23 | PN ---
DATE: 12/09/2016 SUBJECTIVE: The patient states she is feeling relatively well. Does have some mild dizziness when she gets up. Is experiencing some mild discomfort in the area of the left posterior iliac crest bon e marrow aspiration and biopsy. OBJECTIVE: GENERAL: The patient is a well-developed, well-nourished female in no acute distress. VITAL SIGNS: Temperature 98.1, pulse 57 per minute and regular, respirations 20, blood pressure 114 /72, pulse oximetry 99% on room air. SKIN: Pale with scattered ecchymoses and petechiae. HEENT: Normocephalic. No evidence of trauma. Pupils equal, round, and reactive to light and accom modation. There is no scleral icterus. Oral mucosa and conjunctivae are pale. There are no mucosa l purpura. NECK: Supple, no jugular venous distention or thyroid enlargement. CHEST: Clear to auscultation and percussion. No rhonchi, wheezes, rales or rubs. NODES: No palpable lymphadenopathy in any lymph node bearing area. ABDOMEN: Soft, no masses, no ascites. EXTREMITIES: Good range of motion. No clubbing, no edema or cyanosis. No palpable cords or Homans sign. NEUROLOGIC: Normal. CBC from this morning is pending at this time. As is chemistry panel. The patient's bone marrow aspiration and biopsy did not yield any particles with which to make smear s. The bone marrow biopsy touch preps did not show any cells other than red blood cells. ASSESSMENT: 1. 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 2. Thrombocytopenia and anemia secondary to above. PLAN: The results of the bone marrow biopsy will not be available until 12/12/2016. The patient is stable at this time. I feel that she may be discharged and followed up as an outpatient when resul ts are available. Prior to discharge, I would transfuse the patient with 2 units of packed red blood cells and possibl y a unit of platelets. As noted, I do feel this likely represents an evolving acute leukemia. Studies pending include Jak2 mutation and also the BCR-ABL gene rearrangement studies as well as antiplatelet antibodies. Dictated By: LICO LARSEN MD SR/DONALD Conf#: [id number] DID#: [id number]
--- NOTE | 2016-12-09 13:58 | PDOCDIS ---
Discharge Instructions CONDITION Patient Condition: Good HOME CARE INSTRUCTIONS: Diet Instructions: RegularSpecial Diet: Regular ACTIVITY: Activity Restrictions: No Restrictions FOLLOW UP/APPOINTMENTS Follow-up Plan pt needs follow up appt with dr ralph next week ALFREDO BUSCH MD Dec 09, 2016 13:58
[2016-12-09 15:36] LABS: ANA SCREEN POSITIVE (NEGATIVE)
[2016-12-09 23:36] LABS: ALBUMIN 3.3 g/dL (3.8-4.8)
[2016-12-10] MEDS ORDERED: LEVOTHYROXINE 112 MCG TAB PO SCH (06:00)
[2016-12-12 23:37] LABS: PLATELET ANTIBODY - IGA NEGATIVE (NEGATIVE); PLATELET ANTIBODY - IGG NEGATIVE (NEGATIVE); PLATELET ANTIBODY - IGM NEGATIVE (NEGATIVE)
--- NOTE | 2016-12-13 09:43 | DS ---
DATE OF ADMISSION: 12/07/2016 DATE OF DISCHARGE: 12/09/2016 This 56-year-old female admitted with weakness, some bruising of 6 weeks duration with known hypothy roidism. PERTINENT PHYSICAL EXAMINATION: VITAL SIGNS: Normal. There was mild orthostatic BP changes, BP 115/78 sitting, 104/76 standing. CARDIOPULMONARY: Exam was unrevealing. ABDOMEN: There was no organomegaly, although there was fullness in the left upper quadrant. Skin r evealed petechia and ecchymoses, particularly on the extremities but also on the torso. LABORATORY AND DIAGNOSTIC STUDIES: On admission, hematocrit 21.7, white count 12,500, platelet coun t was 3000 after 1 unit of packed cells and a platelet pheresis pack, hematocrit increased to 22.4, platelet count 39,000, white count was 12,500 on admission on the 11,200. On the prior to discharge she received additional platelet pheresis pack and 2 units of packed cells with her hemat ocrit being 26.4 on the , white count 6800, platelet count was 19,000. Review of the peripheral smear by pathology did reveal blasts present. Chemistries were unrevealing except for LDH was 1335 . Electrolytes were normal. AST and ALT on the were 39 and 74 and 72 and 110 respectively wit h alkaline phosphatase 168 and 149. TSH was 1.26. Protime and PTT were normal. Fibrinogen 424. U rinalysis: 2+ blood, 3+, glucose, 1 white cell and red cells were present. IgG was 891, IgA 140, I gM 36. Stool for occult blood was positive. DOYLE was positive at a level of 1 to 160. Hepatitis A antibody was nonreactive antibodies were present. Hepatitis B antigen was negative. HOSPITAL COURSE: Included undergoing the above diagnostic studies including bone marrow and hematol ogy evaluation by Dr. Langley. At time of discharge, she was stable and felt somewhat better after being transfused. DISCHARGE DIAGNOSES initial impression was ITP, but based on the profound anemia and blasts, there i s concern that leukemia is present. PLAN: To be discharged and to be followed up by Dr. Langley, to continue levothyroxine 25 mcg per d ay and Cytomel 25 mcg per day. Dictated By: ALFREDO BUSCH MD MR/DONALD Conf#: [id number] [facility]#: [id number]
== END 2016-12-09 20:30 | disposition home or self-care (01) | DRG 835 ==
LOC: E/R 09:26 → MS4 13:11
PROVIDERS: ADMIT Internal Medicine; ATTEND Internal Medicine
PROC: 30233R1 Transfusion of Nonautologous Platelets into Peripheral Vein, Percutaneous Approach (ICD-10-PCS; principal; 2016-12-07)
PROC: 30233N1 Transfusion of Nonautologous Red Blood Cells into Peripheral Vein, Percutaneous Approach (ICD-10-PCS; 2016-12-07)
PROC: 07DR3ZX Extraction of Iliac Bone Marrow, Percutaneous Approach, Diagnostic (ICD-10-PCS; 2016-12-08)
DX: C95.00 Acute leukemia of unspecified cell type not having achieved remission (principal); D62 Acute posthemorrhagic anemia; N92.0 Excessive and frequent menstruation with regular cycle; E03.9 Hypothyroidism, unspecified; Z80.6 Family history of leukemia
CPT/HCPCS: 36415; 36430; 71020; 74176; 76705; 77012; 80053; 81001; 81270; 82270; 82607; 82728; 82746; 82784; 83540; 83615; 83690; 83735; 84100; 84155; 84165; 84443; 84560; 85025; 85384; 85610; 85730; 86022; 86038; 86320; 86644; 86708; 86709; 86803; 86850; 86900; 86901; 86920; 87340; 96374; 97161; J1566; J1200; J2930; J3010; J7030; J7040; P9016; P9035